=== PATIENT | female | born 1955 | race Caucasian/White ===

== ENCOUNTER → 2023-09-30 07:30 | Outpatient (REF) | payer BC, SELFPAY | LOC: HWRAD 07:30 | PROVIDERS: ATTENDING PHYSICIAN Internal Medicine; FAMILY PHYSICIAN Family Medicine | DX: L29.9 Pruritus, unspecified (principal) | CPT/HCPCS: 71046 ==

== ENCOUNTER → 2024-07-24 06:27 | Outpatient (REF) | payer BC, SELFPAY ==
[2024-07-24 10:42] LABS: ALT (SGPT) 20 U/L (0-35); AST (SGOT) 30 U/L (14-36); Albumin 4.3 g/dl (3.5-5.0); Alkaline Phosphatase 66 U/L (38-126); Blood Urea Nitrogen 16 mg/dl (7-17); Calcium 9.2 mg/dl (8.4-10.2); Carbon Dioxide 28 mmol/L (22-30); Chloride 105 mmol/L (98-107); Glucose 88 mg/dl (70-99); Sodium 139 mmol/L (135-145); Total Bilirubin 0.6 mg/dl (0.2-1.3); Total Cholesterol 279 mg/dl (50-199); Total Protein 7.1 g/dl (6.3-8.2); Triglyceride 116 mg/dl (10-149); Very Low Density Lipoprotein 23 mg/dl (0-30); eGFR > 60.00
[2024-07-24 10:51] LABS: HDL Cholesterol 120 mg/dl; LDL Cholesterol, Calculated 136 mg/dl
== END ==
LOC: HWWDC 06:27
PROVIDERS: ATTENDING PHYSICIAN Family Medicine
DX: M85.89 Other specified disorders of bone density and structure, multiple sites (principal); Z12.31 Encounter for screening mammogram for malignant neoplasm of breast; E04.2 Nontoxic multinodular goiter; E78.2 Mixed hyperlipidemia
CPT/HCPCS: 36415; 76536; 77063; 77067; 77080; 80053; 80061

== ENCOUNTER → 2024-08-14 06:55 | Outpatient (REF) | payer BC, SELFPAY | LOC: RAD 06:55 | PROVIDERS: ATTENDING PHYSICIAN Family Medicine | DX: I73.9 Peripheral vascular disease, unspecified (principal) | CPT/HCPCS: 93922; 93925 ==

== ENCOUNTER → 2025-03-01 07:25 | Outpatient (REF) | payer BC, SELFPAY ==
[2025-03-01 10:03] LABS: Hematocrit 35.7 % (37.0-47.0); Hemoglobin 11.5 g/dL (12.0-16.0); Mean Corp Hgb Conc. 32.2 g/dL (33.0-37.0); Mean Corpuscular Volume 84.6 fL (81.0-99.0); Nucleated Red Blood Cells % 0 %; Platelet Count 293 10^3/uL (130-400); Red Cell Dist. Width 13.5 % (11.5-14.5)
[2025-03-01 10:34] LABS: ALT (SGPT) 19 U/L (0-35); AST (SGOT) 28 U/L (14-36); Albumin 4.4 g/dl (3.5-5.0); Alkaline Phosphatase 60 U/L (38-126); Blood Urea Nitrogen 19 mg/dl (7-17); Calcium 9.3 mg/dl (8.4-10.2); Carbon Dioxide 26 mmol/L (22-30); Chloride 108 mmol/L (98-107); Glucose 84 mg/dl (70-99); HDL Cholesterol 93 mg/dl; Iron 81 ug/dl (37-170); LDL Cholesterol, Calculated 153 mg/dl; Potassium 4.2 mmol/L (3.5-5.1); Sodium 140 mmol/L (135-145); Total Protein 7.3 g/dl (6.3-8.2); Very Low Density Lipoprotein 18 mg/dl (0-30); eGFR > 60.00
[2025-03-01 10:42] LABS: Vitamin D, 25-OH*** 44.0 ng/mL (30-80)
[2025-03-01 10:56] LABS: TSH 1.33 uIU/ml (0.47-4.68)
[2025-03-01 11:00] LABS: Ferritin 27.2 ng/ml (11.1-264.0)
== END ==
LOC: HWLAB 07:25
PROVIDERS: ATTENDING PHYSICIAN Physician Assistant Surgical; FAMILY PHYSICIAN Family Medicine
DX: E55.9 Vitamin D deficiency, unspecified (principal); E78.2 Mixed hyperlipidemia
CPT/HCPCS: 36415; 80053; 80061; 82306; 82728; 83540; 84443; 85025

== ENCOUNTER → 2025-03-26 09:57 | Outpatient (REF) | payer BC, SELFPAY ==
[2025-03-28 14:31] LABS: Source Blood
[2025-03-28 20:41] LABS: 24 Hour Urine Total Volume Random mL; Urine Collection Length Random hr
[2025-03-29 01:28] LABS: Albumin 4.35 g/dL (3.75-5.01); Free Kappa Light Chains,Quant 18.16 mg/L (3.30-19.40); Free Lambda Light Chains,Quant 13.58 mg/L (5.71-26.30); Immunofixation Electrophoresis IFE Done; Kappa/Lambda Fr Light Ratio 1.34 (0.26-1.65); Total Protein-Electrophoresis 7.0 g/dL (6.3-8.2)
== END ==
LOC: REG 09:57
PROVIDERS: ATTENDING PHYSICIAN Nurse Practitioner Family; FAMILY PHYSICIAN Family Medicine
DX: G35 Multiple sclerosis (principal); L23.0 Allergic contact dermatitis due to metals; L29.89 Other pruritus
CPT/HCPCS: 36415; 82784; 83520; 83521; 84155; 84156; 84165; 86334; 86335

== ENCOUNTER → 2025-06-21 15:38 | Outpatient (REF) | payer BC, SELFPAY | LOC: MRI 3T 15:38 | PROVIDERS: ATTENDING PHYSICIAN Electrodiagnostic Medicine; FAMILY PHYSICIAN Family Medicine | DX: G35.B0 Primary progressive multiple sclerosis, unspecified (principal) | CPT/HCPCS: 70551 ==

== ENCOUNTER → 2025-07-09 15:28 | Outpatient (REF) | payer BC, SELFPAY ==
[2025-07-09 16:18] LABS: Hematocrit 39.6 % (37.0-47.0); Hemoglobin 12.7 g/dL (12.0-16.0); Mean Corp Hgb Conc. 32.1 g/dL (33.0-37.0); Mean Corpuscular Volume 83.2 fL (81.0-99.0); Nucleated Red Blood Cells % 0 %; Platelet Count 376 10^3/uL (130-400); Red Cell Dist. Width 13.1 % (11.5-14.5)
[2025-07-09 16:20] LABS: Urine Character Clear (Clear)
[2025-07-09 16:26] LABS: Urine Squamous Cell 0-2 /LPF (Few)
[2025-07-09 16:27] LABS: Urine White Cell 0-2 /HPF (0-5)
[2025-07-09 16:41] LABS: ALT (SGPT) 19 U/L (0-35); AST (SGOT) 27 U/L (14-36); Albumin 4.5 g/dl (3.5-5.0); Alkaline Phosphatase 74 U/L (38-126); Amylase 106 U/L (30-110); Blood Urea Nitrogen 19 mg/dl (7-17); Calcium 9.6 mg/dl (8.4-10.2); Carbon Dioxide 27 mmol/L (22-30); Chloride 102 mmol/L (98-107); Glucose 107 mg/dl (70-99); Lipase 58 U/L (23-300); Potassium 4.2 mmol/L (3.5-5.1); Sodium 135 mmol/L (135-145); Total Protein 7.5 g/dl (6.3-8.2); eGFR > 60.00
== END ==
LOC: RAD 15:28
PROVIDERS: ATTENDING PHYSICIAN Physician Assistant; FAMILY PHYSICIAN Family Medicine
DX: R10.9 Unspecified abdominal pain (principal)
CPT/HCPCS: 36415; 76705; 80053; 81003; 81015; 82150; 83690; 85025